=== PATIENT | male | born 1965 | race Two or more races ===

== ENCOUNTER 2023-11-19 11:07 | Emergency (ER) | payer MEDICAID, OTHER ==
[~2023-11-19] VITALS: Ht 170.2 cm; Wt 61.0 kg
[2023-11-19 13:26] LABS: Basophils # (auto) 0 10 ^3/uL (0-0.2); Basophils % (auto) 0.4 % (0.0-2.0); Eosinophils # (auto) 0.1 10 ^3/uL (0-0.8); Eosinophils % (auto) 0.8 % (0.0-7.0); Hematocrit 46.9 % (41.0-53.0); Hemoglobin 15.5 g/dL (13.5-17.5); Lymphocytes # (auto) 3.9 10 ^3/uL (0.4-5.4); Lymphocytes % (auto) 32.3 % (10.0-50.0); Mean Corpuscular Hemoglobin 31.1 pg (28.0-32.0); Mean Corpuscular Hgb Conc. 33.1 g/dL (32.0-36.0); Mean Corpuscular Volume 94.1 fL (80.0-100.0); Monocytes # (auto) 1.1 10 ^3/uL (0-1.3); Monocytes % (auto) 9.4 % (0.0-12.0); Neutrophils # (auto) 6.8 10 ^3/uL (1.6-8.6); Neutrophils % (auto) 57.1 % (37.0-80.0); Red Blood Cells 4.98 10^6/uL (4.5-5.90); Red Cell Distribution Width 15.4 % (11.8-14.3); White Blood Cell 11.9 10^3/uL (4.4-10.8)
[2023-11-19 13:35] LABS: Chloride 106 mmol/L (98-107); Potassium 3.7 mmol/L (3.5-5.1); Sodium 139 mmol/L (136-145)
[2023-11-19 13:36] LABS: Anion Gap 4 (5-15); Calcium 10.2 mg/dL (8.5-10.1); Carbon Dioxide 29 mmol/L (20-30)
[2023-11-19 13:41] LABS: BUN/Creatinine Ratio 11.3 (10.0-20.0); Blood Urea Nitrogen 7 mg/dL (9-23); Glucose 72 mg/dL (74-106)
[2023-11-19 14:08] LABS: Urine Bacteria NONE SEEN /hpf (None Seen); Urine Blood Negative /uL (Negative); Urine Clarity Clear (Clear); Urine Color Yellow (Yellow); Urine Protein, UAD Negative (Negative); Urine Specific Gravity 1.012 (1.001-1.035); Urine Urobilinogen Normal (Negative); Urine WBC 25 /hpf (0 - 3); Urine pH 6.5 (5.0-8.0)
[2023-11-19] MEDS ORDERED: CIPR-173 PO (14:16)
[2023-11-19 14:32] VITALS: BP 129/73; PULSE 87; RESP 18; TEMP 97.7; O2SAT 96
== END 2023-11-19 14:34 | disposition home or self-care (01) ==
LOC: ER 11:07 → EDBD 11:07 → ER 14:34
DX: N39.0 Urinary tract infection, site not specified (principal); N20.0 Calculus of kidney; I10 Essential (primary) hypertension; E78.5 Hyperlipidemia, unspecified; F17.210 Nicotine dependence, cigarettes, uncomplicated; Z90.5 Acquired absence of kidney; Z86.73 Personal history of transient ischemic attack (TIA), and cerebral infarction without residual deficits
CPT/HCPCS: 36415; 74176; 80048; 81001; 85025